=== PATIENT | male | born 1950 | race Caucasian/White ===

== ENCOUNTER 2016-12-16 08:22 | Emergency (ER) | payer OTHER ==
--- NOTE | 2016-12-16 08:44 | EDPHY ---
H & P Stated Complaint: Nonproductive cough,nausea,diarrhea x 1 week; states fever for "awhile" Time Seen by Provider: 12/16/16 08:43 HPI/ROS: CHIEF COMPLAINT: Fever, myalgias, nonproductive cough, diarrhea HISTORY OF PRESENT ILLNESS: The patient presents to the ED with a one-week history of fever, myalgias, nonproductive cough and diarrhea. The patient denies recent travel outside the [place]. The patient denies taking any regular medications. He does have a history of hepatitis-C which was treated with interferon complicated by the development of non-Hodgkin's lymphoma which was also treated approximately 1 year ago. The patient denies any recent antibiotic use. He complains of mild abdominal pain. He complains of moderate myalgias and generalized weakness. REVIEW OF SYSTEMS: A comprehensive 10 point review of systems is otherwise negative aside from elements mentioned in the history of present illness. Source: Patient Exam Limitations: No limitations - Personal History Current Tetanus Diphtheria and Acellular Pertussis (TDAP): No - Medical/Surgical History Other PMH: Hep C. NonHodgkins Lymphoma - Social History Smoking Status: Never smoked - Physical Exam Exam: General Appearance: Alert, appears uncomfortable Eyes: Pupils equal and round no pallor or injection ENT, Mouth: Dry mucous membranes Respiratory: There are no retractions, lungs are clear to auscultation Cardiovascular: Regular rate and rhythm Gastrointestinal: Minimal hypogastric tenderness to palpation Neurological: A&O, normal motor function, normal sensory exam, normal cranial nerves Skin: Warm and dry, no rashes Musculoskeletal: Neck is supple nontender Extremities: symmetrical, full range of motion Constitutional: Initial Vital Signs Temperature (C) 36.5 C 12/16/16 08:24 Heart Rate 74 12/16/16 08:24 Respiratory Rate 20 12/16/16 08:24 Blood Pressure 109/68 12/16/16 08:24 O2 Sat (%) 99 12/16/16 08:24 O2 Delivery Mode Room Air Allergies/Adverse Reactions: quinine Allergy (Intermediate, Verified 12/16/16 08:28) Hives zinc Allergy (Mild, Verified 12/16/16 08:28) Rash Home Medications: Medication Instructions Recorded NK [No Known Home Meds] 12/16/16 Medical Decision Making - Diagnostics Imaging Results: Imaging Impressions Chest X-Ray 12/16/16 08:44 Impression: 1. No pneumonia. 2. Bilateral nipple shadows are more prominent today than on the prior radiograph. Findings and recommendations discussed with Alfredo Parham at 0943 hours, December 16, 2016. Final report concurs with initial preliminary interpretation. ED Course/Re-evaluation: The patient presents to the ED with cough, vomiting and diarrhea for the past week. The patient is noted to be hemodynamically stable. The patient's chest x- ray demonstrates no evidence of a focal infiltrate. The patient did have unremarkable laboratory studies. After some time he was able to provide a stool sample which will be sent for PCR analysis. The patient did receive IV fluid rehydration secondary to his vomiting and diarrhea. He received IV Zofran and Toradol. The patient had serial examinations by myself in the ED 3 times over a 4 hour period. He is currently feeling much better. He will be discharged home at 1: 00 p.m. with a prescription for Zofran and [place]. The patient will contact the emergency department later today to check the results of his GI PCR panel. The patient will be discharged home with customary aftercare instructions. The patient continues to have a benign abdominal examination throughout his stay in the ED. Differential Diagnosis: Differential diagnosis considered includes viral gastroenteritis, influenza, pneumonia, dehydration, metabolic abnormality - Data Points Laboratory Results: Laboratory Results 12/16/16 09:00 12/16/16 09:00 12/16/16 12/16/16 12/16/16 09:05 09:00 09:00 WBC 5.18 10^3/uL 10^3/uL (3.80-9.50) RBC 5.50 10^6/uL 10^6/uL (4.40-6.38) Hgb 16.3 g/dL g/dL (13.7-17.5) Hct 45.0 % % (40.0-51.0) MCV 81.8 fL fL (81.5-99.8) MCH 29.6 pg pg (27.9-34.1) MCHC 36.2 g/dL g/dL (32.4-36.7) RDW 13.2 % % (11.5-15.2) Plt Count 190 10^3/uL 10^3/uL (150-400) MPV 9.2 fL fL (8.7-11.7) Neut % (Auto) 70.6 % % (39.3-74.2) Lymph % (Auto) 17.2 % % (15.0-45.0) [place] % (Auto) 11.6 % % (4.5-13.0) Eos % (Auto) 0.0 % L % (0.6-7.6) Baso % (Auto) 0.2 % L % (0.3-1.7) Nucleat RBC Rel Count 0.0 % % (0.0-0.2) Absolute Neuts (auto) 3.66 10^3/uL 10^3/uL (1.70-6.50) Absolute Lymphs (auto) 0.89 10^3/uL L 10^3/uL (1.00-3.00) Absolute Monos (auto) 0.60 10^3/uL 10^3/uL (0.30-0.80) Absolute Eos (auto) 0.00 10^3/uL L 10^3/uL (0.03-0.40) Absolute Basos (auto) 0.01 10^3/uL L 10^3/uL (0.02-0.10) Absolute Nucleated RBC 0.00 10^3/uL 10^3/uL (0-0.01) Immature Gran % 0.4 % % (0.0-1.1) Immature Gran # 0.02 10^3/uL 10^3/uL (0.00-0.10) Sodium 137 mEq/L mEq/L (134-144) Potassium 3.6 mEq/L mEq/L (3.5-5.2) Chloride 106 mEq/L mEq/L (97-110) Carbon Dioxide 17 mEq/l L mEq/l (22-31) Anion Gap 14 mEq/L mEq/L (8-16) BUN 17 mg/dL mg/dL (7-23) Creatinine 0.9 mg/dL mg/dL (0.7-1.3) Estimated GFR > 60 Glucose 98 mg/dL mg/dL (70-100) Calcium 9.7 mg/dL mg/dL (8.5-10.4) Influenza Typ A,B (DFA) NEGATIVE FOR FLU (NEGATIVE) Medications Given: Discontinued Medications Ketorolac Tromethamine (Toradol) 30 mg IVP EDNOW ONE Stop: 12/16/16 11:38 Last Admin: 12/16/16 11:43 Dose: 30 mg Departure - Departure Disposition: Home, Routine, Self-Care Clinical Impression: Diarrhea, Dehydration, Viral illness Condition: Good Instructions: Dehydration (ED), Gastroenteritis (ED) Additional Instructions: 1. Zofran as needed for nausea. 2. [place] for pain 3. Please contact the emergency department this evening to check the results of your stool test at [phone]. 4. Please contact [facility] 5. Sometimes we are unable to diagnose an obvious cause of abdominal pain in the Emergency Department. Based upon our evaluation today, II believe your pain is secondary to a viral infection. Because more serious conditions can be difficult to diagnose early in the course of their presentation, we ask that you return to the Emergency Department in 8-12 hours for a recheck if you are still having pain. This is necessary to exclude the development of a more serious condition such as appendicitis or other intra-abdominal emergency. In the event your pain markedly increases before that time or you develop intractable vomiting or fever return to the Emergency Department immediately. Referrals: Travis Sanchez MD [Medical Doctor] - As per Instructions
[2016-12-16 09:17] LABS: % IMMATURE GRANULYOCYTES 0.4 % (0.0-1.1); ABSOLUTE IMMATURE GRANULOCYTES 0.02 10^3/uL (0.00-0.10); ADD DIFF? NO; ADD MORPH? NO; ADD SCAN? NO; ATYPICAL LYMPHOCYTE FLAG 0 (0-99); FRAGMENT RBC FLAG 0 (0-99); HEMOGLOBIN 16.3 g/dL (13.7-17.5); LEFT SHIFT FLG 30 (0-99); LIPEMIA HEMOLYSIS FLAG 90 (0-99); MEAN CELL HEMOGLOBIN 29.6 pg (27.9-34.1); MEAN CELL HEMOGLOBIN CONCENTR. 36.2 g/dL (32.4-36.7); MEAN CELL VOLUME 81.8 fL (81.5-99.8); MEAN PLATELET VOLUME 9.2 fL (8.7-11.7); PLATELET CLUMPS FLAG 10 (0-99); PLATELET COUNT 190 10^3/uL (150-400); RED CELL DISTRIBUTION WIDTH 13.2 % (11.5-15.2)
[2016-12-16 09:24] LABS: ANION GAP 14 mEq/L (8-16); CALCIUM 9.7 mg/dL (8.5-10.4); CARBON DIOXIDE 17 mEq/l (22-31); CHLORIDE 106 mEq/L (97-110); CREATININE 0.9 mg/dL (0.7-1.3); GLOMERULAR FILTRATION RATE > 60; GLUCOSE 98 mg/dL (70-100); POTASSIUM 3.6 mEq/L (3.5-5.2); SODIUM 137 mEq/L (134-144)
[2016-12-16 10:57] VITALS: TEMP 99
[2016-12-16] MEDS ORDERED: KETOROLAC 30 MG/1 ML SDV IVP ONE (11:37)
[2016-12-16 13:08] VITALS: BP 98/59; PULSE 62; RESP 16; O2SAT 94
== END 2016-12-16 13:16 | disposition home or self-care (01) ==
DX: E86.0 Dehydration (principal); B34.9 Viral infection, unspecified
CPT/HCPCS: 96374; 99284; J1885